=== PATIENT | male | born 1965 | race Caucasian/White ===

== ENCOUNTER → 2017-07-15 | Outpatient (CLI) | payer BC ==
[~2017-07-15] MED LIST: CIP500 PO; CYC10 PO; DOC100 PO; FLAX100042 PO; IBU800 PO; IBUP-1455 PO; MULT-820 PO; PER PO; PROAIRPT IH; SIMV-42 PO; TRA50 PO; VENL75CA58 PO
--- NOTE | 2017-07-15 15:05 | RADIOLOGY IMAGING REPORT ---
FACILITY: [facility] PATIENT NAME: Bruno Eaton : 1965 MR: [id number] V: [id number] EXAM DATE: [id number] ORDERING PHYSICIAN: BROOKE FERRARO TECHNOLOGIST: Location: [facility] [place] Patient: Bruno Eaton : 1965 Visit/Account:[id number] Date of Sevice: 07/15/2017 EXAMINATION: C SPINE W/O CONTRAST INDICATION: Spinal stenosis COMPARISON: None available TECHNIQUE: Multiplane MR imaging was performed through the cervical spine without contrast. FINDINGS: Vertebral body height: Normal Cord signal: Normal Marrow signal: Normal Prevertebral and paraspinal soft tissues: Normal C2-3: Normal C3-4: Minimal disc protrusion, congenitally narrowing of the canal, mild canal narrowing, mild to mod erate left foraminal narrowing, mild right foraminal narrowing. C4-5: Mild to moderate degenerative disc disease, slight retrolisthesis of C4 on C5, small disc protr usion, congenitally narrowed canal, mild canal narrowing. Severe left and moderate to severe right fo raminal narrowing. C5-6: Mild to moderate disc space degeneration. Small disc protrusion, minimal canal narrowing, mild to moderate right and mild left foraminal narrowing. C6-7: Small disc protrusion, no canal narrowing, mild right foraminal narrowing. C7-T1: Normal IMPRESSION: 1. C4-5 and C5-6 degenerative disc disease, see comments above. 2. Multilevel foraminal narrowing, see level by level comments above. 3. 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 Report Dictated By: Cale Oconnell MD at 07/15/2017 2:56 PM Report E-Signed By: Cale Oconnell MD at 07/15/2017 3:00 PM WSN:[email or web address]
--- NOTE | 2017-07-15 15:10 | RADIOLOGY IMAGING REPORT ---
[place] [facility] [place] NAME: Bruno Eaton : 1965 MR: [id number] V: [id number] EXAM DATE: ORDERING PHYSICIAN: BROOKE FERRARO TECHNOLOGIST: Location: [facility] Patient: Bruno Eaton : 1965 Visit/Account:[id number] Date of Sevice: 07/15/2017 Study: FINGER RIGHT THUMB Indication: Pain Comparison study: None Findings: AP lateral and oblique views of the right thumb demonstrates minimal degenerative disease a t the first metacarpal phalangeal joint. There is no evidence of acute bony abnormality. There is n o evidence of dislocation or subluxation of the visualized joint spaces. IMPRESSION: Minimal degenerative disease at first metacarpal phalangeal joint. Report Dictated By: Brijesh Lujan at 07/15/2017 3:03 PM Report E-Signed By: Brijesh Lujan at 07/15/2017 3:06 PM WSN:[email or web address]
--- NOTE | 2017-07-15 15:12 | RADIOLOGY IMAGING REPORT ---
FACILITY: [facility] [place] PATIENT NAME: Bruno Eaton : 1965 MR: [id number] V: [id number] EXAM DATE: ORDERING PHYSICIAN: BROOKE FERRARO TECHNOLOGIST: Location: [facility] [place] Patient: Bruno Eaton : 1965 Visit/Account:[id number] Date of Sevice: 07/15/2017 Study: FINGER LEFT THUMB Indication: Pain Comparison study: None Findings: AP lateral and oblique views of the left thumb demonstrates presence of mild degenerative d isease at the first interphalangeal joint and minimal degenerative disease at the first metacarpal ph alangeal joint. There is no evidence of acute bony abnormality. There is no evidence of lytic or blastic bony lesion . There is moderate degenerative disease at the first metacarpal carpal joint. This is characteristic of osteoarthritis. IMPRESSION: Degenerative arthropathy as described. Report Dictated By: Brijesh Lujan at 07/15/2017 3:06 PM Report E-Signed By: Brijesh Lujan at 07/15/2017 3:07 PM WSN:[email or web address]
== END ==
LOC: MRI 01:19
PROVIDERS: ATTEND Nurse Practitioner Family
DX: M19.042 Primary osteoarthritis, left hand (principal); M19.041 Primary osteoarthritis, right hand; M50.321 Other cervical disc degeneration at C4-C5 level; M50.322 Other cervical disc degeneration at C5-C6 level
CPT/HCPCS: 72141